=== PATIENT | female | born 1930 | race Caucasian/White ===

== ENCOUNTER 2019-02-10 13:04 | Emergency (ER) | payer MEDICARE, OTHER ==
[2019-02-10 14:39] LABS: ADD MAN DIFF? NO
[2019-02-10 14:43] LABS: BASOPHIL # 0.1 10^3/ul (0.0-0.1); BASOPHILS % 1.1 % (0.0-2.0); EOSINOPHILS # 1.1 10^3/ul (0.0-0.5); EOSINOPHILS % 12.9 % (0.0-7.0); HEMATOCRIT 37.9 % (37.0-47.0); HEMOGLOBIN 12.3 g/dl (12.0-16.0); LYMPHOCYTES # 1.2 10^3/ul (0.8-2.9); LYMPHOCYTES % 13.9 % (15.0-51.0); MEAN CORPUSCULAR HEMOGLOBIN 31.1 pg (29.0-33.0); MEAN CORPUSCULAR HGB CONC 32.5 g/dl (32.0-37.0); MEAN CORPUSCULAR VOLUME 95.9 fl (82.0-101.0); MONOCYTE # 0.6 10^3/ul (0.3-0.9); MONOCYTES % 7.2 % (0.0-11.0); NEUTROPHIL # 5.4 10^3/ul (1.6-7.5); NEUTROPHILS % 64.5 % (39.0-77.0); PLATELET COUNT 138 10^3/UL (140-415); RED BLOOD COUNT 3.95 10^6/ul (4.20-5.40); RED CELL DISTRIBUTION WIDTH 14.7 % (11.5-14.5)
[2019-02-10 14:43] LABS: WHITE BLOOD COUNT 8.4 10^3/ul (4.8-10.8)
[2019-02-10 14:44] LABS: MEAN PLATELET VOLUME 10.4 fl (7.4-10.4); POSITIVE DIFF @See below
[2019-02-10] MEDS: NICARDipine HCL 30 MG CAPSULE PO (14:46)
[2019-02-10] MEDS ORDERED: ENALAPRILAT 1.25 MG INJ IV (15:00)
[2019-02-10 15:02] LABS: INR 1.05; PROTIME 13.8 Sec (11.9-14.9); PT RATIO 1.1
[2019-02-10 15:03] LABS: ANION GAP 9 (5-13); BLOOD UREA NITROGEN 23 mg/dl (7-20); CALCIUM 10.8 mg/dl (8.4-10.2); CARBON DIOXIDE 32 mmol/L (21-31); CHLORIDE 98 mmol/L (97-110); GLUCOSE 131 mg/dl (70-220); POTASSIUM 3.4 mmol/L (3.5-5.1); SODIUM 139 mmol/L (135-144)
[2019-02-10] MEDS ORDERED: hydrALAzine 20 MG INJ (15:16)
[2019-02-10] MEDS: SOD CHLORIDE 0.9% 500 ML IV (15:24)
[2019-02-10] MEDS: hydrALAzine 20 MG INJ IV (15:28)
[2019-02-10] MEDS: niCARdipine-NS 0.1MG/ML DRIP 200 ML IV (15:35)
[2019-02-10] MEDS: LEVETIRACETAM 1000 MG (PMX) 100 ML IVPB (15:54)
[2019-02-10 16:04] LABS: TROPONIN-I 0.013 ng/ml (0.000-0.120)
[2019-02-10 17:36] LABS: COLLAGEN/ADP 193 Secs. (40-147); COLLAGEN/EPI 237 Secs. (51-198)
== END 2019-02-10 16:47 | disposition short-term general hospital (02) ==
LOC: E/R 16:47
DX: S06.5X0A Traumatic subdural hemorrhage without loss of consciousness, initial encounter (principal); I10 Essential (primary) hypertension; S02.32XA Fracture of orbital floor, left side, initial encounter for closed fracture; S02.92XA Unspecified fracture of facial bones, initial encounter for closed fracture; I16.9 Hypertensive crisis, unspecified; S00.12XA Contusion of left eyelid and periocular area, initial encounter; W18.39XA Other fall on same level, initial encounter; Y92.002 Bathroom of unspecified non-institutional (private) residence as the place of occurrence of the external cause; Z79.82 Long term (current) use of aspirin
CPT/HCPCS: 36415; 70450; 70486; 71045; 80048; 84484; 85025; 85576; 85610; 85730; 93005; 96374; 96375; 99285-25